=== PATIENT | male | born 1950 ===

== ENCOUNTER 2022-09-07 12:59 | Inpatient (IN) | payer MEDICARE ==
[~2022-09-07] VITALS: Ht 177.8 cm; Wt 69.2 kg
[2022-09-07 13:37] LABS: BASOPHILS ABSOLUTE AUTO 0.03 K/mm3 (0.00-0.23); BASOPHILS PERCENT AUTO 0 % (0-2); EOSINOPHILS PERCENT AUTO 0 % (0-6); Hematocrit 41.1 % (37.0-53.0); Hemoglobin 14.2 g/dL (13.5-17.5); IMMATURE GRAN ABSOLUTE AUTO 0.02 K/mm3 (0.00-0.10); IMMATURE GRAN PERCENT AUTO 0 % (0-1); LYMPHOCYTES ABSOLUTE AUTO 1.68 K/mm3 (0.84-5.20); LYMPHOCYTES PERCENT AUTO 18 % (21-46); MONOCYTES ABSOLUTE AUTO 0.59 K/mm3 (0.16-1.47); MONOCYTES PERCENT AUTO 6 % (4-13); Mean Corpuscular HGB 30.1 pg (26.0-34.0); Mean Corpuscular HGB Conc 34.5 g/dL (31.5-36.5); Mean Corpuscular Volume 87 fL (80-100); NEUTROPHILS ABSOLUTE AUTO 6.86 K/mm3 (1.96-9.15); NEUTROPHILS PERCENT AUTO 75 % (41-73); Platelet Count 226 K/mm3 (150-400); RDW Coefficient Variation 12.8 % (11.7-14.2); RDW Standard Deviation 40.9 fL (35.1-46.3); Red Blood Cell Count 4.72 M/mm3 (4.30-5.90); White Blood Cell Count 9.18 K/mm3 (4.00-11.30)
[2022-09-07 14:00] LABS: Albumin, Blood 3.5 g/dL (3.4-5.0); Albumin/Globulin Ratio 0.7 (0.8-1.8); Bilirubin, Total 0.8 mg/dL (0.1-1.0); Bun/Creatinine Ratio 24.1 (12.0-20.0); Creatinine, Blood 0.71 mg/dL (0.60-1.20); Globulin, Blood 5.2 g/dL (2.2-4.0); Potassium, Blood 4.2 mmol/L (3.5-5.5); Total Protein, Blood 8.7 g/dL (6.4-8.2)
[2022-09-07 15:37] LABS: Anti-Xa UFH, PHA Monitoring <0.10 IU/mL; International Normalized Ratio 1.08; Prothrombin Time Results 11.3 Sec (9.7-11.5)
[2022-09-07 16:45] LABS: CHOL/HDL RATIO 3.1; Cholesterol 93 mg/dL (50-200); HDL Cholesterol 30 mg/dL (>39); LDL/HDL RATIO 1.7; Low Density Lipoprotein Chol 51 mg/dL (0-110); Triglycerides 62 mg/dL (30-160); Very Low Density Lipoprot Chol 12 mg/dL (6-32)
--- NOTE | 2022-09-07 18:29 | NUR ---
PCU ADMIT / CP PT BROUGHT TO PCU-18 BY DAY FROM ER @ APPROX 1730. PT A&O X4. VSS. SPO2 > 92% ON RA. MONITOR SHOWING SR, HR 60s-70s. HEPARIN GTT & NS GTT INITIATED PER EMAR UPON ARRIVAL TO UNIT. CALL TO MD CONNER TO REPORT PT C/O "4/10 TIGHTENING CONSTRICTION" IN CHEST. PT STATING PREVIOUS IV FENTANYL DOSE IN ER "RELAXED ME BUT DIDN'T TAKE THE PAIN AWAY." MD CONNER W/ ORDER TO CONSULT CARDIOLOGY, DC IV FENTANYL & GIVE IV MORPHINE, SEE ORDER IN EMAR.
--- NOTE | 2022-09-07 20:16 | NUR ---
ASSUMED CARE AT 1900 PT LAYING IN BED WATCHING TV AT SHIFT CHANGE. HE IS A/O X4 AND ABLE TO MAKE HIS NEEDS KNOWN, VERY POLITE. VSS. ON RA. CHEST PAIN IS VERY MINIMAL AFTER MORPHINE GIVEN, SOME NAUSEA AFTER MORPHINE BUT PT STATES THAT THIS IS MANAGABLE. NO C/O DYSPNEA. FINGER TIPS AND TOES DUSKY IN COLOR. USES URINAL AT BEDSIDE INDEPENDENTLY. HEPARIN INFUSING AT 15UNITS/KG/HR. NS INFUSING AT 100ML/HR. SEE SHIFT ASSESSMENT FOR FULL ASSESSMENT. CRITICAL HIGH TROPONIN OF [phone] XIAO.
[2022-09-08 05:57] LABS: Hematocrit 34.6 % (37.0-53.0); Hemoglobin 11.9 g/dL (13.5-17.5); Mean Corpuscular HGB 30.5 pg (26.0-34.0); Mean Corpuscular HGB Conc 34.4 g/dL (31.5-36.5); Mean Corpuscular Volume 89 fL (80-100); Mean Platelet Volume 10.4 fL (9.1-12.4); Platelet Count 169 K/mm3 (150-400)
[2022-09-08 06:14] LABS: Bun/Creatinine Ratio 16.6 (12.0-20.0); Calcium, Blood 7.9 mg/dL (8.5-10.1); Creatinine, Blood 0.72 mg/dL (0.60-1.20); Potassium, Blood 3.4 mmol/L (3.5-5.5)
--- NOTE | 2022-09-08 06:14 | NUR ---
END OF SHIFT SUMMARY NO ACUTE EVENTS OVER NIGHT. PT SLEPT FOR MOST OF THE NIGHT. NO CHANGES IN NEURO STATUS. CONT TO BE ON RA, NO C/O DYSPNEA. VSS. MORPHINE GIVEN TWICE FOR CHEST PAIN THAT STARTS TO SLOWLY GET WORSE; PRN HELPFUL. MILD NAUSEA NOTED AFTER MORPHINE BUT PT STATES "MANAGEABLE WITHOUT MEDICATION". PT NPO SINCE 0000. USES URINAL INDEPENDENTLY. HEPARIN CONT TO INFUSE AT 15UNITS/KG/HR. NS INFUSING AT 100ML/HR. WILL REPORT TO AM RN WHEN AVAILABLE.
--- NOTE | 2022-09-08 12:08 | NUR ---
AM NOTE: PATIENT ALERT AND ORIENTED X4. VERY CALM AND COOPERATIVE WITH CARES THIS MORNING. PENDING EAR NOSE THROAT PHYSICIAN CONSULT. SBA TO BATHROOM. USING URINAL IN BED. ON ROOM AIR, LUNGS SOUNDING CLEAR. DENIES COUGH. DENIES SOB. TELE SHOWING SR WITH PVC'S. HR 60-70'S. BP STABLE. COMPLAINS OF DULL ACHE TO CHEST 3/10 WITH INTERMITT SHARP SHOOTING PAINS. NITRO PASTE TO LEFT UPPER CHEST. HPEAIN INFUSING PER EMAR WELL NS AT 100 ML/HR. REMAINS NPO FOR CARDIOLOGY CONSULT. AND DAUGHTER UPDATED PER PATIENT. PATIENT FINGERS/TOES DUSKY/PURPLE COLORING, SINCE "WINTER". EKG COMPLETED THIS MORNING AND IN CHART. STATES HE HAS CHRONIC NUMBNESS TO BILATERAL FEET. CALL LIGHT IN REACH. ABLE TO MAKE NEEDS KNOWN. WILL CONTINUE TO MONITOR.
--- NOTE | 2022-09-08 14:08 | NUR ---
PATIENT LEFT TO [facility] AT 1330. CALLED TO UPDATE. PHARMACY CALLED TO UPDATE ON PLACING HEPARIN ON STANDBY.
--- NOTE | 2022-09-08 15:58 | NUR ---
PATIENT RETURNS FROM [facility] AT 1445. VITAL SIGNS STABLE. POST OP VITALS CONTINUE. COMPLAINS OF 3-4/10 CHEST PAIN, THAT IS A DULL ACHE. NS INFUSING AT 200 ML/HR. RIGHT RADIAL SITE WNL WITH SOME SCANT DRIED BLOOD THAT REMAINS UNCHANGED. ARM BOARD IN PLACE. NO HEMATOMA. RADIAL PULSE STRONG. FINGER TIPS REMAINS DUSKY/PURPLE IN COLORING. PATIENT EDUCATED ON POST OP RADIAL SITE PRECAUTIONS. HEPARIN AND NITRO PASTE DC'D. DR. ARSHAD AT BEDSIDE DISCUSSING ANGIO WITH PATIENT, AND DAUGHTER.
--- NOTE | 2022-09-08 18:38 | NUR ---
SHIFT SUMMARY: SEE PREVIOUS NOTES FOR UPDATES. NO CHANGES TO TELE. REMAINS SR. DENIES CHEST PAIN AT THIS TIME. RIGHT RADIAL SITE WNL. ALL AIR DEFLATED FROM TR BAND AT 1830. ARM BOARD REMAINS IN PLACE. NS INFUSED PER EMAR AND PATIENT NOW SALINE LOCKED. REMAINS ON ROOM AIR. PATIENT EATING AND VOIDING WNL. CALLING FOR NEEDS.
--- NOTE | 2022-09-09 05:48 | NUR ---
SHIFT SUMMARY PT RESTED WELL, NO C/P OR ISSUES OVERNIGHT, TR BAND SITE CLEANED AND DRESSED WITH GAUZE AND ARM BOARD IN PLACE, VSS, NO TELE CHANGES
--- NOTE | 2022-09-09 13:35 | NUR ---
RN ENCOURAGED PT TO AMBULATE. DR. ARSHAD, WHILE ROUNDING, WANTED PT TO AMBULATE PRIOR TO D/C TO SEE HOW PT TOLERATES ACTIVITY. OSVALDO SAT UP IN THE CHAIR FOR LUNCH, BUT STATED HE WASN'T VERY HUNGRY. HE WANTED TO GO BACK TO BED, STATING HE HADN'T SLEPT MUCH THE NIGHT PRIOR DUE TO CHEST PAIN. HE DENIES CHEST PAIN THROUGH THE SHIFT TODAY, BUT STATES HE FEELS "A LITTLE UNSTEADY" TODAY. PT DID SHOWER THIS AM INDEPENDENTLY. RN ASSISTED PT BACK TO BED, HE IS REQUESTING UNINTERRUPTED REST. PT ABLE TO USE CALL LIGHT INDEPENDENTLY TO MAKE NEEDS KNOWN.
--- NOTE | 2022-09-09 17:06 | NUR ---
PT AMBULATED ONCE AROUND THE UNIT. HE DENIED INCREASED CHEST PAIN OR SOB. HIS HEART RATE INCREASED TO 122, AND QUICKLY RECOVERED TO SINUS IN THE 90'S WHEN HE SAT DOWN. PT CONTINUES TO DENY CHEST PAIN OR PRESSURE. HE REPORTS THAT HE IS FEELING MORE FATIGUED AND "BEAT UP" THAN YESTERDAY. HE HAS HAD LITTLE APPETITE TODAY. HE IS AMBULATING INDEPENDENTLY TO THE BATHROOM.
--- NOTE | 2022-09-09 18:17 | NUR ---
PT IS A&O X4. HE PREFERS HOMEOPATHIC METHODS, AND IS RELUCTANT TO USE MEDICATIONS RECOMMENDED FOR HIS CARDIAC DISEASE. 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 PT REPORTS FEELING MORE FATIGUED TODAY THAN YESTERDAY. POOR APPETITE. AMBULATED ONCE AROUND THE UNIT TODAY, AND DENIED CHEST PAIN/SOB WITH AMBULATION. FOR MOST OF THE SHIFT WANTED TO REST WITH THE DOOR CLOSED BECAUSE HE DIDN'T SLEEP WELL THE PRIOR NIGHT. PT'S DID BRING CBD/THC PRODUCT CALLED "STONED" TO HELP PT SLEEP, AND HE ATE ABOUT ONE QUARTER OF IT. BLOOD PRESSURE STABLE. ROOM AIR TO MAINTAIN SATS. TELEMETRY MONITORING SINUS IN THE 80'S WITH A BBB AND PVC'S. PT'S RIGHT RADIAL ACCESS SITE SHOWS NO DRAINAGE, NO SWELLING AND DRESSING IS C/D/I. RN WILL CONTINUE TO MONITOR.
--- NOTE | 2022-09-10 04:42 | NUR ---
NO C/P OR ISSUES OVERNIGHT, VSS, PT RESTING IN BED WITH CALL LIGHT IN REACH
[2022-09-10 05:23] LABS: Albumin, Blood 2.3 g/dL (3.4-5.0); Anion Gap 5 mmol/L (6-16); Blood Urea Nitrogen 13 mg/dL (8-24); CO2, Blood 24 mmol/L (21-32); Calcium, Blood 7.9 mg/dL (8.5-10.1); Chloride, Blood 107 mmol/L (98-108); Creatinine, Blood 0.72 mg/dL (0.60-1.20); Glomerular Filtration Rate 97 (60-); Glucose, Blood 115 mg/dL (70-99); Magnesium, Blood 2.1 mg/dL (1.6-2.4); Potassium, Blood 3.1 mmol/L (3.5-5.5); Sodium, Blood 136 mmol/L (136-145)
--- NOTE | 2022-09-10 14:36 | NUR ---
RN CALLED DISCHARGE MEDCIATIONS INTO [facility]Y OF [facility]. RN SPOKE TO PHARMACIST DELFINA. DR. THOMPSON ADDED A NITROGLYCERIN TABLET 0.4MG PO PRN CHEST PAIN, Q5 MIN X3.
[2022-09-10] MEDS ORDERED: ASPI81CH PO (14:52)
[2022-09-10] MEDS ORDERED: LISI5 PO (14:53)
[2022-09-10] MEDS ORDERED: POTCHL20ER PO (14:54)
[2022-09-10] MEDS ORDERED: METO25ER PO (14:54)
[2022-09-10] MEDS ORDERED: NITR.4SL SL (14:56)
--- NOTE | 2022-09-10 16:53 | NUR ---
DISCHARGE NOTE RN EDUCATED PT ON DISCHARGE INSTRUCTIONS, INCLUDING ALCOHOL CESSATION, F/U WITH CARDIOLOGY AND PCP, CARDIAC DIET, AND ALL MEDICATIONS TO TAKE. FAMILY HAD ALREADY PICKED UP MEDICATION FROM [facility]. ALL PERSONAL BELONGINGS RETURNED TO PT. HE WAS ESCORTED OUT OF HOSPITAL VIA WHEELCHAIR AND TO CARE OF DAUGHTER, MANDA, AND LESLIE, TO PRIVATE VEHICLE. PT STATED HE HAD NO FURTHER QUESTIONS AT THIS TIME. IV AND TELEMETRY REMOVED.
== END 2022-09-10 16:39 | disposition home or self-care (01) | DRG 282 ==
LOC: ER 12:59 → PCU 15:32
PROVIDERS: Internal Medicine; Nurse Practitioner Acute Care; Student in an Organized Health Care Education/Training Program; ADMIT Family Medicine
PROC: 4A023N7 Measurement of Cardiac Sampling and Pressure, Left Heart, Percutaneous Approach (ICD-10-PCS; principal; 2022-09-08)
PROC: B211YZZ Fluoroscopy of Multiple Coronary Arteries using Other Contrast (ICD-10-PCS; 2022-09-08)
DX: I21.4 Non-ST elevation (NSTEMI) myocardial infarction (principal); I10 Essential (primary) hypertension; R74.01 Elevation of levels of liver transaminase levels; F10.20 Alcohol dependence, uncomplicated; I73.00 Raynaud's syndrome without gangrene; E11.51 Type 2 diabetes mellitus with diabetic peripheral angiopathy without gangrene; E11.40 Type 2 diabetes mellitus with diabetic neuropathy, unspecified; E87.6 Hypokalemia; E83.39 Other disorders of phosphorus metabolism; Z86.19 Personal history of other infectious and parasitic diseases; Z90.49 Acquired absence of other specified parts of digestive tract
CPT/HCPCS: 36415; 71046; 76937; 80048; 80053; 80061; 80069; 83036; 83735; 84484; 85025; 85027; 85347; 85520; 85610; 85730; 93005; 93010; 93306; 93458; 96374; 99152; 99153; 99285-25; A9270; C1769; C1887; C1894; J1644; J2250; J2270; J2405; J3010; J3246; J7030; J7040; J7050; J7060; Q9967

== ENCOUNTER → 2022-09-07 | Outpatient (CLI) | payer MEDICARE ==
[~2022-09-07] MED LIST: ASPI81CH PO; LISI5 PO; METO25ER PO; NITR.4SL SL; POTCHL20ER PO
[2022-09-07 12:48] LABS: BASOPHILS ABSOLUTE AUTO 0.03 K/mm3 (0.00-0.23); BASOPHILS PERCENT AUTO 0 % (0-2); EOSINOPHILS PERCENT AUTO 0 % (0-6); Hematocrit 43.7 % (37.0-53.0); Hemoglobin 15.3 g/dL (13.5-17.5); IMMATURE GRAN ABSOLUTE AUTO 0.03 K/mm3 (0.00-0.10); IMMATURE GRAN PERCENT AUTO 0 % (0-1); LYMPHOCYTES ABSOLUTE AUTO 1.39 K/mm3 (0.84-5.20); LYMPHOCYTES PERCENT AUTO 17 % (21-46); MONOCYTES ABSOLUTE AUTO 0.53 K/mm3 (0.16-1.47); MONOCYTES PERCENT AUTO 7 % (4-13); Mean Corpuscular HGB 30.6 pg (26.0-34.0); Mean Corpuscular Volume 87 fL (80-100); Mean Platelet Volume 10.1 fL (9.1-12.4); NEUTROPHILS ABSOLUTE AUTO 6.12 K/mm3 (1.96-9.15); NEUTROPHILS PERCENT AUTO 76 % (41-73); Platelet Count 227 K/mm3 (150-400); RDW Standard Deviation 41.1 fL (35.1-46.3)
[2022-09-07 12:58] LABS: Albumin, Blood 3.8 g/dL (3.4-5.0); Albumin/Globulin Ratio 0.7 (0.8-1.8); Bilirubin, Total 0.8 mg/dL (0.1-1.0); Bun/Creatinine Ratio 14.7 (12.0-20.0); Calcium, Blood 9.4 mg/dL (8.5-10.1); Creatinine, Blood 1.09 mg/dL (0.60-1.20); Globulin, Blood 5.7 g/dL (2.2-4.0); Potassium, Blood 3.6 mmol/L (3.5-5.5); Total Protein, Blood 9.5 g/dL (6.4-8.2)
== END | disposition home or self-care (01) ==
LOC: LAB SHORT 12:41
PROVIDERS: Emergency Medicine
DX: R07.9 Chest pain, unspecified (principal)
CPT/HCPCS: 80053; 83690; 83880; 84484; 85025

== ENCOUNTER 2023-05-30 11:41 | Day surgery (SDC) | payer MEDICARE | END 2023-05-30 22:49 | disposition home or self-care (01) | LOC: WOUND 11:41 | DX: D48.5 Neoplasm of uncertain behavior of skin (principal); I73.00 Raynaud's syndrome without gangrene; Z87.891 Personal history of nicotine dependence | CPT/HCPCS: G0463 ==